=== PATIENT | female | born 1970 | race Native Hawaiian/Other Pacific Islander ===

== ENCOUNTER 2018-03-16 08:35 | Outpatient (CLI) | payer OTHER | END 2018-03-16 19:25 | disposition home or self-care (01) | LOC: MAMMO 08:35 | DX: Z12.31 Encounter for screening mammogram for malignant neoplasm of breast (principal) ==

== ENCOUNTER 2019-06-26 08:29 | Outpatient (CLI) | payer OTHER | END 2019-06-26 19:59 | disposition home or self-care (01) | LOC: MAMMO 08:29 | DX: Z12.31 Encounter for screening mammogram for malignant neoplasm of breast (principal) ==

== ENCOUNTER 2019-07-19 13:31 | Outpatient (CLI) | payer OTHER | END 2019-07-19 19:49 | disposition home or self-care (01) | LOC: RAD 13:31 | DX: M79.672 Pain in left foot (principal) ==